=== PATIENT | female | born 1955 | race Two or more races ===

== ENCOUNTER 2020-05-13 05:36 | Inpatient (IN) | payer OTHER ==
[2020-05-13] VITALS (17 sets, daily range): BP systolic 137–164; BP diastolic 74–92
[~2020-05-13] VITALS: Ht 152.4 cm; Wt 90.7 kg
[2020-05-13] MEDS ORDERED: ceFAZolin sod 1gm in D5W 55ml IVPB ONE (06:00)
[2020-05-13] MEDS ORDERED: oxyCONTIN 10mg tab ORAL ONE ×2 (06:00)
[2020-05-13] MEDS ORDERED: ceFAZolin 1gm IVPB IVPB ONE ×2 (06:00)
[2020-05-13] MEDS ORDERED: celeBREX 200mg Cap **SURGERY PATIENTS ONLY ORAL ONE ×2 (06:00)
[2020-05-13] MEDS ORDERED: GLEEVEC100 MG ORAL (06:25)
[2020-05-13] MEDS ORDERED: Midazolam 2mg/2ml Inj ONE (07:12)
[2020-05-13] MEDS ORDERED: fentaNYL 100 mcg/2 mL IV ONE (07:12)
--- NOTE | 2020-05-13 07:16 | Pre-Procedure Note/Attestation ---
Pre-Procedure Note/Attestation Complete Prior to Procedure Planned Procedure: right Procedure Narrative: right total knee arthroplasty Indications for Procedure Pre-Operative Diagnosis: right knee arthritis Attestation I attest that I discussed the nature of the procedure; its benefits; risks and complications; and alternatives (and the risks and benefits of such alternatives), prior to the procedure, with the patient (or the patient's legal sales representative electric service). I attest that, if there was a reasonable possibility of needing a blood transfusion, the patient (or the patient's legal sales representative electric service) was given the [facility] standardized written summary, pursuant to the [place] Blood Safety Act ([place] Health and Safety Code # 1645, as amended). I attest that I re-evaluated the patient just prior to the surgery and that there has been no change in the patient's H&P, except as documented below: none Boni Domingo MD May 13, 2020 07:16
[2020-05-13] MEDS ORDERED: Lidocaine 1% MPF 10mg/ml 5ml ONE (07:23)
[2020-05-13] MEDS ORDERED: Ropivacaine 5mg/ml Vial 20ml INJ ONE (07:26)
[2020-05-13] MEDS ORDERED: Tranexamic Acid 1,000 MG in NS 100 ML IVPB ONE (07:30)
[2020-05-13] MEDS ORDERED: Bacitracin 50000 Units Vial ONE (07:30)
[2020-05-13] MEDS ORDERED: NS Irrig 1000ml IRRIG ONE ×3 (07:40→11:02)
[2020-05-13] MEDS ORDERED: HYDROcodone/Acetamin 7.5/325 tab ORAL PRN (07:45)
[2020-05-13] MEDS ORDERED: Milk of Magnesia 30ml Ud ORAL PRN (07:45)
[2020-05-13] MEDS ORDERED: Succinylcholine 20mg/ml 10ml vial ONE (07:47)
[2020-05-13] MEDS ORDERED: Rocuronium Bromide 50mg/5ml Inj IV ONE (07:47)
--- NOTE | 2020-05-13 08:26 | Anethesia Preoperative Eval ---
Anesthesia Pre-op PMH/ROS General Date of Evaluation: May 13, 2020 Time of Evaluation: 08:20 Anesthesiologist: Trent ASA Score: ASA 3 Mallampati Score Class I : Soft palate, uvula, fauces, pillars visible Class II: Soft palate, uvula, fauces visible Class III: Soft palate, base of uvula visible Class IV: Only hard plate visible Mallampati Classification: Class III Surgeon: Jose L Diagnosis: R knee DJD Surgical Procedure: R TKA Anesthesia History: none Family History: no anesthesia problems Allergies: Coded Allergies: No Known Allergies (Unverified , 05/12/20) Medications: see eMAR Patient NPO?: Yes Past Medical History Cardiovascular: Reports: HTN - borderline; Denies: CAD, [place], valve dz, arrhythmia, other Pulmonary: Reports: JANESSA; Denies: asthma, COPD, other Gastrointestinal/Genitourinary: Reports: GERD; Denies: CRI, ESRD, other Neurologic/Psychiatric: Reports: depression/anxiety, other - chronic pain; Denies: dementia, CVA, TIA Endocrine: Reports: DM - borderline, diet; Denies: hypothyroidism, steroids, other HEENT: Denies: cataract (L), cataract (R), glaucoma, [place] (L), [place] (R), other Hematology/Immune: Denies: anemia, DVT, bleeding disorder, other Musculoskeletal/Integumentary: Reports: DJD - R knee; Denies: OA, RA, DDD, edema, other Other: obesity - morbid obesity PMH Narrative: as above PSxH Narrative: Cholecystectomy, laser treatment for esophageal tumor Anesthesia Pre-op Phys. Exam Physician Exam Last Vital Signs Date Time Temp Pulse Resp B/P (MAP) Pulse Ox O2 Delivery O2 Flow Rate FiO2 05/13/20 06:10 Room Air 05/13/20 06:09 97.3 72 18 145/75 (98) 98 Constitutional: NAD Neurologic: CN 2-12 intact Cardiovascular: RRR, no M/R/G Respiratory: CTA - diminished breath sounds Gastrointestinal: other - obesity Airway Exam Mallampati Score: Class III MO: limited Neck: short ROM: limited Teeth: missing Dentures: no upper, no lower Anesthesia Pre-op A/P Labs see chart Studies Pre-op Studies: EKG - NSR, CXR - WNL Risk Assessment & Plan Assessment: ASA 3 Plan: GA with ETT Saphenous nerve block for postop pain control Status Change Before Surgery: No Pre-Antibiotics Drug: Ancef 2gr. Given Within 1 Hr of Incision: Yes Time Given: 09:15 Celestino Newman MD May 13, 2020 08:26
[2020-05-13] MEDS: Docusate 100mg cap ORAL SCH ×3 (09:00→18:14)
[2020-05-13] MEDS ORDERED: ePHEDrine 50mg/ml Inj ONE (09:38)
[2020-05-13] MEDS ORDERED: Sodium Chloride 10ml vial INJ ONE ×2 (09:38→09:54)
[2020-05-13] MEDS ORDERED: Morphine Sulfate 10mg/ml Inj ONE (09:54)
[2020-05-13] MEDS ORDERED: Neostigmine 1mg/ml 10ml Inj ONE (09:56)
[2020-05-13] MEDS ORDERED: Glycopyrrolate 0.2mg/ml 1ml Vial ONE (09:56)
[2020-05-13] MEDS ORDERED: Acetaminophen (Non formulary) 100 ML IV ONE (10:00)
--- NOTE | 2020-05-13 11:46 | Brief Operative Note ---
Immediate Post Operative Note Operative Note Chief Complaint: right knee pain Pre-op Diagnosis: right knee arthritis Procedure: right total knee arthroplasty Post-op Diagnosis: same as pre-op Findings: consistent w/pre-op dx studies Surgeon: md fara Barrel Painter: norberto davis Anesthesiologist: md jessica Anesthesia: general Specimen: yes Complications: none Condition: stable Fluids: ns Estimated Blood Loss: minimal Drains: none Implant(s) used?: Yes - Boni Haywood MD May 13, 2020 11:46
--- NOTE | 2020-05-13 12:10 | Immediate Post-Op Evaluation ---
Immediate Post-Op Evalulation Immediate Post-Op Evalulation Procedure: R TKA Date of Evaluation: May 13, 2020 Time of Evaluation: 12:09 IV Fluids: 1200 Blood Products: none Estimated Blood Loss: 100 Urinary Output: 150 Blood Pressure Systolic: 142 Blood Pressure Diastolic: 86 Pulse Rate: 82 Respiratory Rate: 22 O2 Sat by Pulse Oximetry: 99 Temperature (Fahrenheit): 97.7 Pain Score (1-10): 2 Nausea: No Vomiting: No Complications none Patient Status: reacts, patent, extubated, none Hydration Status: adequate Celestino Newman MD May 13, 2020 12:10
[2020-05-13] MEDS ORDERED: LR 1000ml 1,000 ML IVLG SCH (12:15)
[2020-05-13] MEDS ORDERED: DiphenhydrAMINE 50mg/ml Inj IVP PRN (12:15)
[2020-05-13] MEDS ORDERED: Ketorolac 30mg Inj IV PRN (12:15)
[2020-05-13] MEDS ORDERED: Hydromorphone 0.5mg/0.5ml inj ONE (12:30)
[2020-05-13] MEDS ORDERED: Hydromorphone 0.5mg/0.5ml inj IVP PRN (12:45)
--- NOTE | 2020-05-13 13:18 | 48 Hour Post Anesthesia Eval ---
Post Anesthesia Evaluation Procedure: R TKA Date of Evaluation: May 13, 2020 Time of Evaluation: 13:16 Blood Pressure Systolic: 164 0: 87 Pulse Rate: 86 Respiratory Rate: 14 Temperature (Fahrenheit): 97.6 O2 Sat by Pulse Oximetry: 95 Airway: patent Nausea: No Vomiting: No Pain Intensity: 3 Hydration Status: adequate Cardiopulmonary Status: Stable Mental Status/LOC: patient returned to baseline Follow-up Care/Observations: 0 Post-Anesthesia Complications: 0 Follow-up care needed: N/A Binh Quiroga MD May 13, 2020 13:18
--- NOTE | 2020-05-13 13:53 | Diagnostic Imaging Report ---
Indications: Postoperative Technique: Two views of the right knee Comparison: None Findings: Two postoperative views of the right knee demonstrate total knee arthroplasty, good anatomic alignment of the prosthesis. . There is postsurgical soft tissue air. Overlying skin emilia. Impression: Postoperative right knee, no unusual features.
--- NOTE | 2020-05-13 14:59 | Operative Note - Dictated ---
DATE OF OPERATION: 05/13/2020 PREOPERATIVE DIAGNOSIS: Right knee end-stage arthritis with varus deformity. POSTOPERATIVE DIAGNOSIS: Right knee end-stage arthritis with varus deformity. PROCEDURE: Right total knee arthroplasty using [place] Triathlon System, size 1 femur, size 2 tibial base plate, size 27 mm all-poly patella, and 13 mm ultra cross-linked polyethylene insert. SURGEON: Boni Domingo MD. VEGETABLE INSPECTOR: Ayde Macias PA-C. ANESTHESIOLOGIST: Celestino Newman MD. ANESTHESIA: Spinal anesthesia combined with adductor block. ESTIMATED BLOOD LOSS: Less than 50 mL. TOURNIQUET TIME: 67 minutes. COMPLICATIONS: None. BRIEF HISTORY: The patient is a pleasant 65-year-old female, who has had ongoing right knee pain with stiffness. She had a hard time ambulating. After full discussion of risks and benefits of the surgery and complications associated with it including infection, bleeding, neurovascular complication, possibility of DVT, PE, stiffness, pain with infection requiring resection arthroplasty, instability, need for revision surgery, continued pain, as well as other complications that may arise, she opted for surgical treatment as described above. OPERATIVE PROCEDURE: The patient was brought to the operating room table and was placed supine. All pressure points were well padded. Spinal anesthesia was induced and adductor block was performed. Tranexamic acid and preop antibiotics were given. The right leg was then prepped and draped in usual sterile fashion and the right leg was exsanguinated. Tourniquet was inflated to 275 mmHg. Standard anterior incision was made over the anterior knee. The medial parapatellar arthrotomy was performed and medial releases of the deep fibers MCL was performed. The patella was everted and knee was flexed. The ACL and PCL were resected. The intramedullary access into the femur was obtained and a 5-degree valgus distal femoral cut was performed. Subsequently, sizing of the femur was performed and size 1 appeared to be the right size. The distal femoral cut was placed in 3 degrees external rotation. Anterior, posterior, and chamfer cuts were performed without any complication. At this point, a trial #1 femur was applied and malleted in. There was excellent fit. Peg holes on the femur were drilled. At this point, care was given to the tibia. The posterior, medial, and lateral retractors were placed. The knee was hyperflexed to about 120 degrees. The tibia could be visualized. The menisci both lateral and medial were resected. Appropriate retractors were placed in and the entire surface of the tibia could be seen. At this point, the extramedullary guide was placed using anterior crest of the tibia as a guide to recreate anatomical axis. Anatomical axis was recreated. A 9 mm was taken off the least involved side, which was the lateral side. At this point, a tibial cut was performed without any complication. The flexion-extension gap was checked and appeared to be excellent. At this point, sizing of the tibia was performed and size 2 appeared to be the right size, size 2 tibia was placed in about 2 or 3 degrees external rotation and was drilled and punched. At this point, trial tibia, trial femur was applied and polys including 9 mm, 11 mm and 13 mm were applied. A 13 mm appeared to give best stability with full extension and full flexion. There was excellent stability at 0, 30 degrees, 45 degrees, and 90 degrees of flexion. There was full extension and full flexion. At this point, care was given to the patella. The patella was everted. It was extremely worn out. It measured 18 mm precut. Therefore, a very minimal cut of the patella was performed leaving 13 mm of patella. At this point, the sizing was performed. A 27 mm patella appeared to be the right size. Peg holes were drilled without any complications. Trial patella was applied and all trial components from the femur, tibia, and poly were assembled and the patellofemoral tracking was checked and there was excellent patellofemoral tracking. There was excellent stability as previously described. There was great range of motion. At this point, all trial components were removed. The knee was thoroughly irrigated using copious amount of fluid. A bone was fashioned to place into the intramedullary access into the femur to control bleeding. After the knee was thoroughly irrigated using Simpulse irrigation and the bone was completely dried. At this point, the tibial component, femoral component and patella components were all cemented in and locked in without any complication. This provided excellent stability and excellent compression of the cement was performed and all excess cement was removed including tibial side and femoral side. The 13 mm insert was then applied and knee was placed in full extension. Care was given to the patella and patella was compressed and all excess cement was removed. At this point, once the cement dried up, the trialing was performed and again 13 mm poly insert appeared to be the right size with respect to stability and range of motion. Once this was trialed with actual component, the trial was removed and again all additional excess cement was removed and the knee was thoroughly irrigated using Simpulse irrigation. At this point, actual 13 mm poly insert was locked in without any complication. The stability of the actual poly was then checked and appeared to be excellent. At this point, the knee was placed through range of motion and stability was checked and appeared to be excellent as described previously. At this point, the tourniquet was deflated and there was minimal bleeders that were controlled. The extensor mechanism was closed using #1 Vicryl suture. Subcutaneous tissue was closed using 2-0 Vicryl suture. Skin was closed using 3-0 Monocryl suture. Dermabond was applied and sterile compression dressing was applied. The patient was taken to recovery room in stable condition. All lap counts and instrument counts were correct. Boni Domingo M.D. DR: MABROSE JOB#: [id number] CC:
[2020-05-13] MEDS: ceFAZolin sod 1 GM in D5W 55 ML IV SCH (16:22)
[2020-05-13] MEDS: D5 1/2NS w/KCl 20mEq 1,000 ML IV SCH (16:22)
--- NOTE | 2020-05-13 19:33 | General Progress Note ---
Subjective Allergies: Coded Allergies: No Known Allergies (Unverified , 05/12/20) Subjective status post right total knee arthroplasty no chest pain or sob Objective Last 24 Hour Vital Signs Date Time Temp Pulse Resp B/P (MAP) Pulse Ox O2 Delivery O2 Flow Rate FiO2 05/13/20 16:45 98.0 98 18 137/88 (104) 93 05/13/20 15:42 98.0 104 18 139/88 (105) 95 05/13/20 14:45 97.9 94 17 143/90 (107) 90 05/13/20 14:15 97.8 95 16 142/91 (108) 90 05/13/20 13:45 97.5 94 16 142/91 (108) 93 05/13/20 13:25 97.8 88 13 147/86 95 Nasal Cannula 3 05/13/20 13:19 90 16 153/85 95 Nasal Cannula 3 05/13/20 13:18 86 14 95 05/13/20 13:04 87 14 164/89 95 Nasal Cannula 3 05/13/20 13:01 97.7 05/13/20 12:55 94 19 150/92 95 Nasal Cannula 3 05/13/20 12:40 86 15 154/87 95 Simple Mask 6 05/13/20 12:30 83 16 161/91 98 Simple Mask 6 05/13/20 12:22 87 15 160/91 96 Simple Mask 6 05/13/20 12:12 86 17 150/90 95 Simple Mask 6 05/13/20 12:10 82 22 99 05/13/20 12:07 87 18 150/83 96 Simple Mask 6 05/13/20 12:02 97.9 86 22 157/74 98 Simple Mask 6 05/13/20 06:10 Room Air 05/13/20 06:09 97.3 72 18 145/75 (98) 98 Intake and Output 05/12/20 05/13/20 19:00 07:00 # Voids 1 Height (Feet): 5 Height (Inches): 0.00 Weight (Pounds): 200 General Appearance: WD/WN, no apparent distress Neck: supple Cardiovascular: normal rate Respiratory/Chest: lungs clear Abdomen: soft Objective right knee wrapped neurovascular intact Assessment/Plan Assessment/Plan: sp right total knee arthropaslty arthritis post op care pain control PT check labs in am dvt prophylaxis Óscar Hebert MD May 13, 2020 19:33
[2020-05-13] MEDS: oxyCONTIN 20mg tab ORAL SCH ×2 (21:00→21:50)
[2020-05-14] VITALS: BP 130/73
[2020-05-14] MEDS: ceFAZolin sod 1 GM in D5W 55 ML IV SCH (00:37)
[2020-05-14 06:07] LABS: EOSINOPHILS % (AUTO) 0.1 % (0.0-3.0); HEMATOCRIT 32.5 % (37.0-47.0); HEMOGLOBIN 11.5 G/DL (12.0-16.0); LYMPHOCYTES % (AUTO) 18.9 % (20.0-45.0); MEAN CORPUSCULAR VOLUME 93 FL (80-99); MONOCYTES % (AUTO) 8.9 % (1.0-10.0); PLATELET COUNT 231 K/UL (150-450); RED BLOOD COUNT 3.51 M/UL (4.20-5.40); WHITE BLOOD COUNT 10.7 K/UL (4.8-10.8)
[2020-05-14 06:35] LABS: ALANINE AMINOTRANSFERASE 38 U/L (12-78); ALBUMIN 3.1 G/DL (3.4-5.0); ALKALINE PHOSPHATASE 60 U/L (46-116); ASPARTATE AMINO TRANSFERASE 25 U/L (15-37); BILIRUBIN,TOTAL 0.5 MG/DL (0.2-1.0); BLOOD UREA NITROGEN 9 mg/dL (7-18); CALCIUM 8.2 MG/DL (8.5-10.1); CARBON DIOXIDE 30 MMOL/L (21-32); CHLORIDE 105 MMOL/L (98-107); CREATININE 0.8 MG/DL (0.55-1.30); POTASSIUM 4.3 MMOL/L (3.5-5.1); SODIUM 140 MMOL/L (136-145)
[2020-05-14] MEDS: HYDROcodone/Acetamin 5/325 tab ORAL PRN ×2 (06:40→18:41)
[2020-05-14] MEDS: D5 1/2NS w/KCl 20mEq 1,000 ML IV SCH ×2 (06:43→17:10)
[2020-05-14 08:00] VITALS: BP 136/82
--- NOTE | 2020-05-14 08:14 | 48 Hour Post Anesthesia Eval ---
Post Anesthesia Evaluation Procedure: R TKA Date of Evaluation: May 14, 2020 Time of Evaluation: 08:13 Blood Pressure Systolic: 136 0: 72 Pulse Rate: 76 Respiratory Rate: 20 Temperature (Fahrenheit): 97.6 O2 Sat by Pulse Oximetry: 98 Airway: patent Nausea: No Vomiting: No Pain Intensity: 4 Hydration Status: adequate Cardiopulmonary Status: stable Mental Status/LOC: patient returned to baseline Follow-up Care/Observations: n/a Post-Anesthesia Complications: none Follow-up care needed: N/A Celestino Newman MD May 14, 2020 08:14
--- NOTE | 2020-05-14 08:18 | Orthopedic Progress Note ---
Orthopedic - Progress Note Subjective Symptoms: c/o post-op knee pain Objective Laboratory Tests Test 05/14/20 05:10 White Blood Count 10.7 K/UL (4.8-10.8) Red Blood Count 3.51 M/UL (4.20-5.40) L Hemoglobin 11.5 G/DL (12.0-16.0) L Hematocrit 32.5 % (37.0-47.0) L Mean Corpuscular Volume 93 FL (80-99) Mean Corpuscular Hemoglobin 32.9 PG (27.0-31.0) H Mean Corpuscular Hemoglobin Concent 35.5 G/DL (32.0-36.0) Red Cell Distribution Width 15.0 % (11.6-14.8) H Platelet Count 231 K/UL (150-450) Mean Platelet Volume 6.7 FL (6.5-10.1) Neutrophils (%) (Auto) 71.0 % (45.0-75.0) Lymphocytes (%) (Auto) 18.9 % (20.0-45.0) L Monocytes (%) (Auto) 8.9 % (1.0-10.0) Eosinophils (%) (Auto) 0.1 % (0.0-3.0) Basophils (%) (Auto) 1.0 % (0.0-2.0) Sodium Level 140 MMOL/L (136-145) Potassium Level 4.3 MMOL/L (3.5-5.1) Chloride Level 105 MMOL/L (98-107) Carbon Dioxide Level 30 MMOL/L (21-32) Blood Urea Nitrogen 9 mg/dL (7-18) Creatinine 0.8 MG/DL (0.55-1.30) Estimat Glomerular Filtration Rate > 60 mL/min (>60) Glucose Level 105 MG/DL (74-106) Calcium Level 8.2 MG/DL (8.5-10.1) L Total Bilirubin 0.5 MG/DL (0.2-1.0) Aspartate Amino Transf (AST/SGOT) 25 U/L (15-37) Alanine Aminotransferase (ALT/SGPT) 38 U/L (12-78) Alkaline Phosphatase 60 U/L (46-116) Total Protein 6.2 G/DL (6.4-8.2) L Albumin 3.1 G/DL (3.4-5.0) L Globulin 3.1 g/dL Albumin/Globulin Ratio 1.0 (1.0-2.7) Last 24 Hour Vital Signs Date Time Temp Pulse Resp B/P (MAP) Pulse Ox O2 Delivery O2 Flow Rate FiO2 05/14/20 08:14 76 20 98 05/14/20 00:00 97.8 81 17 130/73 (92) 95 05/13/20 21:00 Nasal Cannula 3.0 05/13/20 20:00 97.5 89 17 143/88 (106) 93 05/13/20 16:45 98.0 98 18 137/88 (104) 93 05/13/20 15:42 98.0 104 18 139/88 (105) 95 05/13/20 14:45 97.9 94 17 143/90 (107) 90 05/13/20 14:15 97.8 95 16 142/91 (108) 90 05/13/20 13:45 97.5 94 16 142/91 (108) 93 05/13/20 13:25 97.8 88 13 147/86 95 Nasal Cannula 3 05/13/20 13:19 90 16 153/85 95 Nasal Cannula 3 05/13/20 13:18 86 14 95 05/13/20 13:04 87 14 164/89 95 Nasal Cannula 3 05/13/20 13:01 97.7 05/13/20 12:55 94 19 150/92 95 Nasal Cannula 3 05/13/20 12:40 86 15 154/87 95 Simple Mask 6 05/13/20 12:30 83 16 161/91 98 Simple Mask 6 05/13/20 12:22 87 15 160/91 96 Simple Mask 6 05/13/20 12:12 86 17 150/90 95 Simple Mask 6 05/13/20 12:10 82 22 99 05/13/20 12:07 87 18 150/83 96 Simple Mask 6 05/13/20 12:02 97.9 86 22 157/74 98 Simple Mask 6 Intake and Output 05/13/20 05/14/20 19:00 07:00 Intake Total 1475 ml 825 ml Output Total 100 ml Balance 1375 ml 825 ml Intake IV Total 1475 ml 825 ml Output Estimated Blood Loss 100 ml Laboratory Tests Test 05/14/20 05:10 White Blood Count 10.7 K/UL (4.8-10.8) Red Blood Count 3.51 M/UL (4.20-5.40) L Hemoglobin 11.5 G/DL (12.0-16.0) L Hematocrit 32.5 % (37.0-47.0) L Mean Corpuscular Volume 93 FL (80-99) Mean Corpuscular Hemoglobin 32.9 PG (27.0-31.0) H Mean Corpuscular Hemoglobin Concent 35.5 G/DL (32.0-36.0) Red Cell Distribution Width 15.0 % (11.6-14.8) H Platelet Count 231 K/UL (150-450) Mean Platelet Volume 6.7 FL (6.5-10.1) Neutrophils (%) (Auto) 71.0 % (45.0-75.0) Lymphocytes (%) (Auto) 18.9 % (20.0-45.0) L Monocytes (%) (Auto) 8.9 % (1.0-10.0) Eosinophils (%) (Auto) 0.1 % (0.0-3.0) Basophils (%) (Auto) 1.0 % (0.0-2.0) Sodium Level 140 MMOL/L (136-145) Potassium Level 4.3 MMOL/L (3.5-5.1) Chloride Level 105 MMOL/L (98-107) Carbon Dioxide Level 30 MMOL/L (21-32) Blood Urea Nitrogen 9 mg/dL (7-18) Creatinine 0.8 MG/DL (0.55-1.30) Estimat Glomerular Filtration Rate > 60 mL/min (>60) Glucose Level 105 MG/DL (74-106) Calcium Level 8.2 MG/DL (8.5-10.1) L Total Bilirubin 0.5 MG/DL (0.2-1.0) Aspartate Amino Transf (AST/SGOT) 25 U/L (15-37) Alanine Aminotransferase (ALT/SGPT) 38 U/L (12-78) Alkaline Phosphatase 60 U/L (46-116) Total Protein 6.2 G/DL (6.4-8.2) L Albumin 3.1 G/DL (3.4-5.0) L Globulin 3.1 g/dL Albumin/Globulin Ratio 1.0 (1.0-2.7) Wound: clean, dry, intact Drains: none Neuro Status: normal Vascular Status: normal Additional Comments xray excellent Assessment Post-op Diagnosis POD 1 Procedure Performed Rt TKA Plan Plan: PT, pain management, discharge plan - possibly home tomorrow Ayde Macias May 14, 2020 08:18
[2020-05-14] MEDS: Docusate 100mg cap ORAL SCH ×3 (08:43→18:42)
[2020-05-14] MEDS: Tamsulosin 0.4mg cap ORAL SCH (08:45)
[2020-05-14] MEDS: celeBREX 200mg Cap **SURGERY PATIENTS ONLY ORAL SCH (08:45)
[2020-05-14] MEDS: oxyCONTIN 10mg tab ORAL SCH ×2 (08:48→20:29)
[2020-05-14] MEDS ORDERED: OMEPRAZOLE20 M2 ORAL (11:02)
[2020-05-14 12:00] VITALS: BP 136/88
[2020-05-14 16:00] VITALS: BP 156/86
--- NOTE | 2020-05-14 19:49 | General Progress Note ---
Subjective Allergies: Coded Allergies: No Known Allergies (Unverified , 05/12/20) Subjective status post right total knee arthroplasty no chest pain or sob had diffculty urinating last night today is fine Objective Last 24 Hour Vital Signs Date Time Temp Pulse Resp B/P (MAP) Pulse Ox O2 Delivery O2 Flow Rate FiO2 05/14/20 16:00 97.7 78 18 156/86 (109) 95 05/14/20 12:00 98.2 85 18 136/88 (104) 93 05/14/20 09:00 Nasal Cannula 3.0 05/14/20 08:14 76 20 98 05/14/20 08:00 97.6 75 18 136/82 (100) 95 05/14/20 00:00 97.8 81 17 130/73 (92) 95 05/13/20 21:00 Nasal Cannula 3.0 05/13/20 20:00 97.5 89 17 143/88 (106) 93 Intake and Output 05/13/20 05/14/20 19:00 07:00 Intake Total 1475 ml 900 ml Output Total 100 ml Balance 1375 ml 900 ml IV Total 1475 ml 900 ml Estimated Blood Loss 100 ml Laboratory Tests 05/14/20 05:10: White Blood Count 10.7, Red Blood Count 3.51L, Hemoglobin 11.5L, Hematocrit 32.5L, Mean Corpuscular Volume 93, Mean Corpuscular Hemoglobin 32.9H, Mean Corpuscular Hemoglobin Concent 35.5, Red Cell Distribution Width 15.0H, Platelet Count 231, Mean Platelet Volume 6.7, Neutrophils (%) (Auto) 71.0, Lymphocytes (%) (Auto) 18.9L, Monocytes (%) (Auto) 8.9, Eosinophils (%) (Auto) 0.1, Basophils (%) (Auto) 1.0, Sodium Level 140, Potassium Level 4.3, Chloride Level 105, Carbon Dioxide Level 30, Blood Urea Nitrogen 9, Creatinine 0.8, Estimat Glomerular Filtration Rate > 60, Glucose Level 105, Calcium Level 8.2L, Total Bilirubin 0.5, Aspartate Amino Transf (AST/SGOT) 25, Alanine Aminotransferase (ALT/SGPT) 38, Alkaline Phosphatase 60, Total Protein 6.2L, Albumin 3.1L, Globulin 3.1, Albumin/Globulin Ratio 1.0 Height (Feet): 5 Height (Inches): 0.00 Weight (Pounds): 200 General Appearance: WD/WN Neck: supple Cardiovascular: normal rate Respiratory/Chest: lungs clear Abdomen: soft Objective right knee wrapped neurovascular intact Assessment/Plan Assessment/Plan: sp right total knee arthropaslty arthritis post op care pain control PT dvt prophylaxis Óscar Hebert MD May 14, 2020 19:49
[2020-05-14 20:00] VITALS: BP 141/76
[2020-05-15] VITALS: BP 131/67
[2020-05-15 04:00] VITALS: BP 129/70
[2020-05-15] MEDS: D5 1/2NS w/KCl 20mEq 1,000 ML IV SCH (04:52)
[2020-05-15] MEDS: HYDROcodone/Acetamin 5/325 tab ORAL PRN ×2 (05:52→09:45)
[2020-05-15 06:18] LABS: BASOPHILS % (AUTO) 1.3 % (0.0-2.0); EOSINOPHILS % (AUTO) 1.3 % (0.0-3.0); HEMATOCRIT 31.7 % (37.0-47.0); HEMOGLOBIN 10.9 G/DL (12.0-16.0); LYMPHOCYTES % (AUTO) 22.9 % (20.0-45.0); MEAN CORPUSCULAR VOLUME 95 FL (80-99); MONOCYTES % (AUTO) 8.3 % (1.0-10.0); NEUTROPHILS % (AUTO) 66.2 % (45.0-75.0); PLATELET COUNT 206 K/UL (150-450); RED BLOOD COUNT 3.33 M/UL (4.20-5.40); RED CELL DISTRIBUTION WIDTH 13.7 % (11.6-14.8); WHITE BLOOD COUNT 8.6 K/UL (4.8-10.8)
--- NOTE | 2020-05-15 07:58 | Orthopedic Progress Note ---
Orthopedic - Progress Note Subjective Symptoms: c/o post-op knee pain Objective Last 24 Hour Vital Signs Date Time Temp Pulse Resp B/P (MAP) Pulse Ox O2 Delivery O2 Flow Rate FiO2 05/15/20 04:00 98.8 80 18 129/70 (89) 96 05/15/20 00:00 98.1 84 17 131/67 (88) 97 05/14/20 21:00 Nasal Cannula 3.0 05/14/20 20:00 98.6 75 17 141/76 (97) 96 05/14/20 16:00 97.7 78 18 156/86 (109) 95 05/14/20 12:00 98.2 85 18 136/88 (104) 93 05/14/20 09:00 Nasal Cannula 3.0 05/14/20 08:14 76 20 98 05/14/20 08:00 97.6 75 18 136/82 (100) 95 Intake and Output 05/14/20 05/15/20 19:00 07:00 Intake Total 1400 ml 240 ml Output Total 575 ml 1800 ml Balance 825 ml -1560 ml Intake Oral 500 ml 240 ml IV Total 900 ml Output Urine Total 500 ml 1800 ml Emesis 75 ml # Voids 2 3 Laboratory Tests Test 05/15/20 05:39 White Blood Count 8.6 K/UL (4.8-10.8) Red Blood Count 3.33 M/UL (4.20-5.40) L Hemoglobin 10.9 G/DL (12.0-16.0) L Hematocrit 31.7 % (37.0-47.0) L Mean Corpuscular Volume 95 FL (80-99) Mean Corpuscular Hemoglobin 32.7 PG (27.0-31.0) H Mean Corpuscular Hemoglobin Concent 34.4 G/DL (32.0-36.0) Red Cell Distribution Width 13.7 % (11.6-14.8) Platelet Count 206 K/UL (150-450) Mean Platelet Volume 7.2 FL (6.5-10.1) Neutrophils (%) (Auto) 66.2 % (45.0-75.0) Lymphocytes (%) (Auto) 22.9 % (20.0-45.0) Monocytes (%) (Auto) 8.3 % (1.0-10.0) Eosinophils (%) (Auto) 1.3 % (0.0-3.0) Basophils (%) (Auto) 1.3 % (0.0-2.0) Wound: clean, dry Assessment Procedure Performed right total knee arthroplasty Plan Plan: PT, pain management, discharge to home Additional Comments Dressing Changes prior to D/C Work with PT today before discharge Follow up in 2 weeks Boni Domingo MD May 15, 2020 07:58
[2020-05-15 08:00] VITALS: BP 132/65
[2020-05-15] MEDS: celeBREX 200mg Cap **SURGERY PATIENTS ONLY ORAL SCH (08:48)
[2020-05-15] MEDS: oxyCONTIN 10mg tab ORAL SCH (08:48)
[2020-05-15] MEDS: Docusate 100mg cap ORAL SCH ×2 (08:49→13:14)
[2020-05-15] MEDS: Tamsulosin 0.4mg cap ORAL SCH (08:49)
[2020-05-15 12:00] VITALS: BP 124/65
--- NOTE | 2020-05-15 18:46 | General Progress Note ---
Subjective Allergies: Coded Allergies: No Known Allergies (Unverified , 05/12/20) Subjective status post right total knee arthroplasty no chest pain or sob pos bm going home today Objective Last 24 Hour Vital Signs Date Time Temp Pulse Resp B/P (MAP) Pulse Ox O2 Delivery O2 Flow Rate FiO2 05/15/20 12:00 97.6 84 18 124/65 (84) 97 05/15/20 09:18 98.0 05/15/20 09:18 98.0 05/15/20 09:00 Nasal Cannula 3.0 05/15/20 08:00 98.0 87 18 132/65 (87) 93 05/15/20 04:00 98.8 80 18 129/70 (89) 96 05/15/20 00:00 98.1 84 17 131/67 (88) 97 05/14/20 21:00 Nasal Cannula 3.0 05/14/20 20:00 98.6 75 17 141/76 (97) 96 Intake and Output 05/14/20 05/15/20 19:00 07:00 Intake Total 1400 ml 240 ml Output Total 575 ml 1800 ml Balance 825 ml -1560 ml Intake Oral 500 ml 240 ml IV Total 900 ml Output Urine Total 500 ml 1800 ml Emesis 75 ml # Voids 2 3 Laboratory Tests 05/15/20 05:39: White Blood Count 8.6, Red Blood Count 3.33L, Hemoglobin 10.9L, Hematocrit 31.7L , Mean Corpuscular Volume 95, Mean Corpuscular Hemoglobin 32.7H, Mean Corpuscular Hemoglobin Concent 34.4, Red Cell Distribution Width 13.7, Platelet Count 206, Mean Platelet Volume 7.2, Neutrophils (%) (Auto) 66.2, Lymphocytes (%) (Auto) 22.9, Monocytes (%) (Auto) 8.3, Eosinophils (%) (Auto) 1.3, Basophils (%) (Auto) 1.3 Height (Feet): 5 Height (Inches): 0.00 Weight (Pounds): 200 General Appearance: WD/WN Neck: supple Cardiovascular: normal rate Respiratory/Chest: lungs clear Abdomen: soft Edema: no edema noted Arm (L), no edema noted Arm (R), no edema noted Leg (L), no edema noted Leg (R), no edema noted Pedal (L), no edema noted Pedal (R), no edema noted Generalized Objective right knee wrapped neurovascular intact Assessment/Plan Assessment/Plan: sp right total knee arthropaslty arthritis post op care pain control PT dc home today fup as outpatient Óscar Hebert MD May 15, 2020 18:46
--- NOTE | 2020-05-19 08:08 | Discharge Summary ---
Discharge Summary Discharge Summary _ DATE OF ADMISSION: 05/13/2020 DATE OF DISCHARGE: 05/15/2020 DISCHARGED BY: Dr. 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 CONSULTANTS: Internal medicine Dr. Hebert [facility] COURSE: Patient subsequently undergone on 05/13 right total knee arthroplasty. Course of recovery was uneventful Initially received IV fluids. S/p perioperative antibiotic. Neurovascular status closely monitored, remained stable Incision clean , dry and intact. Dressing changed prior to discharge. Pain management was addressed Pain was controlled Remained hemodynamically stable Ambulated with PT. Fall precautions maintained; safe for ambulation DVT prophylaxis provided. Use of incentive spirometry was encouraged while in the bed. Tolerated diet , IV fluids discontinued Voided freely Bowel regimen instituted Patient was stable for discharge Discharge instructions provided Follow up with surgeon in 2 weeks FINAL DIAGNOSES: Right knee end-stage arthritis with varus deformity Status post right total knee arthroplasty DISCHARGE MEDICATIONS: See Medication Reconciliation list. DISCHARGE INSTRUCTIONS: Patient was discharged home. ollow-up with a surgeon in 2 weeks as advised. I have been assigned to dictate discharge summary for this account. I was not involved in the patient's management. Dunia Nina NP May 19, 2020 08:08
== END 2020-05-15 16:30 | disposition home or self-care (01) | DRG 470 ==
LOC: SDSOVERFLO 05:36 → 3E 13:38
PROC: 0SRC0J9 Replacement of Right Knee Joint with Synthetic Substitute, Cemented, Open Approach (ICD-10-PCS; principal; 2020-05-13 07:45)
DX: M17.11 Unilateral primary osteoarthritis, right knee (principal); M21.161 Varus deformity, not elsewhere classified, right knee; R73.03 Prediabetes
CPT/HCPCS: 36415; 80053; 85025; 86850; 86900; 86901; 87081; 94003; 94150; J2250; J2405; J2710; J2795; U0002